=== PATIENT | female | born 1990 | race Asian ===

== ENCOUNTER 2016-08-31 00:36 | Emergency (ER) | payer OTHER ==
[~2016-08-31] VITALS: Ht 160 cm; Wt 51.0 kg
[~2016-08-31 00:36] MED LIST: IBU600 MG PO; MOTRIN 600600 MG/TAB PO; PERCOCET 325 MG1 TA2 PO; PRENATAL1 TA1 PO; SENOKOT S 50 MG1 TAB PO
[2016-08-31 00:41] VITALS: TEMP 99.1
[2016-08-31 02:20] VITALS: BP 98/61; PULSE 69
== END 2016-08-31 02:20 | disposition home or self-care (01) ==
LOC: COL.ER 00:36
DX: T26.12XA Burn of cornea and conjunctival sac, left eye, initial encounter (principal); T26.11XA Burn of cornea and conjunctival sac, right eye, initial encounter; W89.8XXA Exposure to other man-made visible and ultraviolet light, initial encounter